=== PATIENT | male | born 1955 | race Caucasian/White ===

== ENCOUNTER 2022-07-27 11:47 | Emergency (ER) | payer BC, MEDICARE, OTHER ==
[2022-07-27] MEDS ORDERED: Triamcinolone Acetonide 40 MG/ML 1 ML SDV INJECT ONE (12:47)
[2022-07-27 13:08] VITALS: BP 160/81; PULSE 63
== END 2022-07-27 13:02 | disposition home or self-care (01) ==
LOC: VM.ED 11:47
DX: L20.9 Atopic dermatitis, unspecified (principal); L73.9 Follicular disorder, unspecified; K21.9 Gastro-esophageal reflux disease without esophagitis; Z79.899 Other long term (current) drug therapy; Z91.011 Allergy to milk products
CPT/HCPCS: 96372; 99282; 99283; J3301